=== PATIENT | female | born 1955 | race African-American/Black ===

== ENCOUNTER → 2018-06-28 | Outpatient (CLI) | payer BC | LOC: LAB.R 08:00 | PROVIDERS: ATTEND Nurse Practitioner Obstetrics & Gynecology | DX: N76.0 Acute vaginitis (principal) ==

== ENCOUNTER 2018-07-08 08:03 | Outpatient (CLI) | payer BC ==
[2018-07-08 08:50] LABS: CREATININE 0.7 mg/dL (0.4-1.0)
== END 2018-07-08 08:04 | disposition home or self-care (01) ==
LOC: DI 08:03 → LAB 08:04
PROVIDERS: ATTEND Internal Medicine
DX: R31.9 Hematuria, unspecified (principal)
CPT/HCPCS: 36415; 82565

== ENCOUNTER 2018-07-09 07:45 | Outpatient (CLI) | payer BC ==
[2018-07-09] MEDS ORDERED: IOVERSOL 320 100 ML VIAL IVP ONE ×2 (07:55→08:13)
--- NOTE | 2018-07-10 05:13 | CT Report ---
Reason: HEMATURIA, HX STONE Procedure Date: 07/09/2018 Accession Number: [id number] / [id number] Procedure: CT - IVP CPT Code: FULL RESULT: EXAM: CT ABDOMEN AND PELVIS WITHOUT AND WITH CONTRAST (CT IVP) EXAM DATE: 07/09/2018 08:14 AM. CLINICAL HISTORY: Hematuria, bloating, history of kidney stones, COMPARISONS: None. TECHNIQUE: Routine helical imaging was performed through the kidneys, ureters and bladder in the precontrast, postcontrast and delayed phase. IV Contrast: 95 mL Optiray 320. Reconstructions: Coronal and sagittal. In accordance with CT protocol optimization, one or more of the following dose reduction techniques were utilized for this exam: automated exposure control, adjustment of mA and/or KV based on patient size, or use of iterative reconstructive technique. FINDINGS: Lung Bases: Unremarkable. Liver: Normal. No masses. Gallbladder/Bile Ducts: Unremarkable. Spleen: Normal. Pancreas: Normal. Adrenal Glands: Normal. Kidneys/Bladder: Right Kidney/Ureter: No renal or ureteral stones. No hydronephrosis or hydroureter. No masses. Left Kidney/Ureter: Asymmetrically smaller size of the left kidney compared to the right side. There is symmetric enhancement of the left kidney compared to the right side. Symmetric contrast excretion. No kidney stone. No hydronephrosis. No suspicious renal mass. No suspicious urinary collecting system filling defect demonstrated. Bladder: No stones. No wall thickening or mass. Peritoneal Cavity/Bowel: Severe sigmoid diverticulosis. No bowel obstruction. Appendix is normal. There is average to moderate retained colonic fecal material. There is no free fluid or pathologic lymphadenopathy noted. Pelvic Organs: Surgically absent uterus. Ovaries are not visualized, possibly surgically absent as well. Vasculature: No aneurysms or other significant abnormality. Bones: Moderate right hip degenerative change. No definite suspicious bony lesions are demonstrated. Other: Small fat-containing umbilical hernia. IMPRESSION: 1. No kidney stone or hydronephrosis. No suspicious renal or urinary collecting system lesion noted. Nonspecific asymmetrically smaller size of the left kidney compared to the right side. 2. Severe sigmoid diverticulosis without acute diverticulitis. 3. Surgically absent uterus. Ovaries are not visualized, possibly surgically absent as well. [facility]
== END 2018-07-09 07:46 | disposition home or self-care (01) ==
LOC: DI 07:45
PROVIDERS: ATTEND Internal Medicine
DX: R31.9 Hematuria, unspecified (principal); K57.30 Diverticulosis of large intestine without perforation or abscess without bleeding; Z90.710 Acquired absence of both cervix and uterus; Z87.442 Personal history of urinary calculi; K21.9 Gastro-esophageal reflux disease without esophagitis
CPT/HCPCS: 74178; 87338; Q9967

== ENCOUNTER 2018-07-09 08:00 | Outpatient (CLI) | payer BC ==
[2018-07-09 17:25] LABS: H. PYLORIS ANTIGEN STL NEGATIVE (Negative)
== END 2018-07-09 23:59 | disposition home or self-care (01) ==
LOC: LAB.R 08:00
PROVIDERS: ATTEND Internal Medicine
DX: K21.9 Gastro-esophageal reflux disease without esophagitis (principal)
CPT/HCPCS: 87338